=== PATIENT | female | born 1955 | race Caucasian/White ===

== ENCOUNTER 2021-07-20 06:22 | Observation (INO) ==
[~2021-07-20 06:22] MED LIST: *HR* OxyCODONE Immed Rel 5 MG TABLET PO PRN; Acetaminophen IV 1,000 MG/100 ML BAG IVPB ONE; Ondansetron 4 MG/2 ML VIAL IVP PRN; Promethazine 6.25 MG in Water for inj. (sterile) 20 ML IVPB PRN
[2021-07-20] MEDS ORDERED: Scopolamine Patch 1.5 MG PATCH.TD72 TD ONE (06:42)
[2021-07-20] MEDS ORDERED: *HR* HYDROmorphone PF 0.5 MG/0.5 ML SYRINGE IVP PRN (06:43)
[2021-07-20] MEDS ORDERED: *HR* OxyCODONE Immed Rel 5 MG TABLET PO PRN ×2 (06:43→12:05)
[2021-07-20] MEDS ORDERED: Ondansetron 4 MG/2 ML VIAL IVP PRN ×2 (06:43→12:05)
[2021-07-20] MEDS ORDERED: Lidocaine -MPF 2% 5 ML VIAL ONE ×2 (06:48→06:51)
[2021-07-20] MEDS ORDERED: *HR* FentaNYL (PF) 100 MCG/2 ML VIAL ONE ×2 (06:48→08:11)
[2021-07-20] MEDS ORDERED: *HR* Midazolam HCl 2 MG/2 ML VIAL ONE (06:48)
[2021-07-20] MEDS ORDERED: *HR* Propofol 200 MG/20 ML VIAL IVP ONE (06:48)
[2021-07-20] MEDS ORDERED: ROPIVACAINE/PF/NS 0.25% 1 EACH SYRINGE INTRAART ONE (06:49)
[2021-07-20] MEDS ORDERED: Ropivacaine/PF 0.5% 30 ML VIAL ONE (06:49)
[2021-07-20] MEDS ORDERED: CeFAZolin Syr 2,000MG/20 ML 2,000 MG/20 ML SYRINGE IVPB ONE (06:51)
[2021-07-20] MEDS ORDERED: Ondansetron 4 MG/2 ML VIAL ONE (06:51)
[2021-07-20] MEDS: Ringers Solution, Lactated 1,000 ML IVC SCH ×2 (07:14→10:17)
[2021-07-20] MEDS ORDERED: TOTAL JOINT MIXTURE (100ML) INTRAART ONE (07:30)
[2021-07-20] MEDS ORDERED: Povidone-Iodine 45 ML, Sodium Chloride IRRigation 1,000 ML IR ONE (07:30)
[2021-07-20] MEDS ORDERED: Tranexamic Acid 1,000 MG/10 ML VIAL ONE (07:42)
[2021-07-20] MEDS ORDERED: EPHEDrine 50 MG/ML VIAL ONE (07:42)
[2021-07-20] MEDS ORDERED: *HR* Succinylcholine 200 MG/10 ML VIAL IVP ONE (09:23)
[2021-07-20] MEDS: *HR* HYDROmorphone PF 0.5 MG/0.5 ML SYRINGE IVP PRN ×4 (10:05→10:35)
[2021-07-20] MEDS ORDERED: Naloxone 0.4 MG/ML INJ IVP PRN (12:05)
[2021-07-20] MEDS ORDERED: Ringers Solution, Lactated 1,000 ML IVC SCH (12:05)
[2021-07-20] MEDS ORDERED: Sennosides 8.6 MG TABLET PO PRN (12:05)
[2021-07-20] MEDS ORDERED: MOM Conc 10 ML UD.LIQ PO PRN (12:05)
[2021-07-20] MEDS ORDERED: Morphine Sulfate 2 MG/ML SYRINGE IVP PRN (12:05)
[2021-07-20] MEDS: *HR* OxyCODONE Immed Rel 5 MG TABLET PO PRN ×2 (15:45→19:45)
[2021-07-20] MEDS: CeFAZolin 2 GM/120 ML BAG IVPB SCH ×2 (16:17→23:20)
[2021-07-20] MEDS: Ascorbic Acid 500 MG TABLET PO SCH (19:45)
[2021-07-20] MEDS: Gabapentin 300 MG CAPSULE PO SCH (21:26)
[2021-07-20] MEDS: rOPINIRole 1 MG TABLET PO SCH (21:26)
[2021-07-20] MEDS: Insulin DETEMIR 100 UNIT/ML X5UNITS SUBQ SCH (21:27)
[2021-07-20] MEDS: CarBAMazepine XR (12 hr) 100 MG TAB PO SCH (21:27)
[2021-07-21 05:08] LABS: Basophils % 0.2 %; Eosinophils # 0.1 K/mcL (0.0-0.6); Eosinophils % 0.7 %; Hematocrit 35.2 % (35.3-44.9); Hemoglobin 11.5 g/dL (11.5-15.4); Immature Granulocytes % 0.4 % (0-4); Lymphocytes # 2.1 K/mcL (0.6-4.6); Lymphocytes % 24.9 %; Mean Corpuscular HGB Conc 32.7 g/dL (31.6-35.5); Mean Corpuscular Volume 88.7 fL (83.0-100.0); Mean Platelet Volume 11.7 fL (9.4-12.4); Monocytes # 0.8 K/mcL (0.0-1.3); Monocytes % 9.2 %; Neutrophils # 5.4 K/mcL (1.6-8.9); Platelet Count 181 K/mcL (140-400); Red Blood Count 3.97 M/mcL (3.82-4.97); Red Cell Distribution Width 13.2 % (11.5-14.5); Segmented Neutrophils % 64.6 %; White Blood Count 8.4 K/mcL (4.3-11.1)
[2021-07-21 05:12] LABS: BUN/Creatinine Ratio 19 (6-26); Blood Urea Nitrogen 18 mg/dL (8-23); Calcium 8.8 mg/dL (8.6-10.3); Carbon Dioxide 27 mEq/L (23-29); Chloride 106 mEq/L (98-107); Glucose 134 mg/dL (70-105); Osmolality,Calculated 292 (280-300); Potassium 3.7 mEq/L (3.5-5.1); Sodium 139 mEq/L (136-145); eGFR For African Americans > 60 (> 60); eGFR For Non-African Americans 58 (> 60)
[2021-07-21] MEDS: CarBAMazepine XR (12 hr) 100 MG TAB PO SCH ×2 (07:30→20:28)
[2021-07-21] MEDS: rOPINIRole 1 MG TABLET PO SCH ×2 (07:30→20:28)
[2021-07-21] MEDS: *HR* OxyCODONE Immed Rel 5 MG TABLET PO PRN ×3 (07:30→20:27)
[2021-07-21] MEDS: Gabapentin 300 MG CAPSULE PO SCH ×2 (07:30→20:28)
[2021-07-21] MEDS: Ascorbic Acid 500 MG TABLET PO SCH ×2 (07:30→15:33)
[2021-07-21] MEDS: lisinopriL 5 MG TABLET PO SCH (09:42)
[2021-07-21] MEDS: Aspirin Enteric Coated 325 MG Tablet PO SCH ×2 (09:43→20:28)
[2021-07-21] MEDS: Celecoxib 200 MG CAPSULE PO SCH (09:43)
[2021-07-21] MEDS: Multivit/Ca/Min/Fe/FA 1 TAB TABLET PO SCH (09:43)
[2021-07-21] MEDS: clonazePAM 1 MG TABLET PO SCH (09:43)
[2021-07-21] MEDS: Insulin DETEMIR 100 UNIT/ML X5UNITS SUBQ SCH (21:46)
[2021-07-22] MEDS: Acetaminophen 325 MG TABLET PO SCH ×3 (01:25→12:06)
[2021-07-22 04:43] LABS: Basophils % 0.4 %; Eosinophils # 0.2 K/mcL (0.0-0.6); Hematocrit 31.1 % (35.3-44.9); Hemoglobin 10.1 g/dL (11.5-15.4); Immature Granulocytes % 0.3 % (0-4); Lymphocytes # 2.2 K/mcL (0.6-4.6); Lymphocytes % 28.8 %; Mean Corpuscular HGB Conc 32.5 g/dL (31.6-35.5); Mean Corpuscular Hemoglobin 28.7 pg (28.0-33.3); Mean Corpuscular Volume 88.4 fL (83.0-100.0); Mean Platelet Volume 12.1 fL (9.4-12.4); Monocytes # 0.8 K/mcL (0.0-1.3); Monocytes % 9.9 %; Neutrophils # 4.4 K/mcL (1.6-8.9); Platelet Count 167 K/mcL (140-400); Red Blood Count 3.52 M/mcL (3.82-4.97); Red Cell Distribution Width 13.2 % (11.5-14.5); Segmented Neutrophils % 58.6 %; White Blood Count 7.6 K/mcL (4.3-11.1)
[2021-07-22 05:03] LABS: BUN/Creatinine Ratio 17 (6-26); Blood Urea Nitrogen 15 mg/dL (8-23); Calcium 8.5 mg/dL (8.6-10.3); Carbon Dioxide 27 mEq/L (23-29); Chloride 106 mEq/L (98-107); Glucose 194 mg/dL (70-105); Osmolality,Calculated 296 (280-300); Potassium 3.5 mEq/L (3.5-5.1); Sodium 140 mEq/L (136-145); eGFR For African Americans > 60 (> 60); eGFR For Non-African Americans > 60 (> 60)
[2021-07-22] MEDS: Ascorbic Acid 500 MG TABLET PO SCH (08:27)
[2021-07-22] MEDS: Aspirin Enteric Coated 325 MG Tablet PO SCH (08:27)
[2021-07-22] MEDS: lisinopriL 5 MG TABLET PO SCH (08:28)
[2021-07-22] MEDS: CarBAMazepine XR (12 hr) 100 MG TAB PO SCH (08:28)
[2021-07-22] MEDS: clonazePAM 1 MG TABLET PO SCH (08:28)
[2021-07-22] MEDS: Gabapentin 300 MG CAPSULE PO SCH (08:29)
[2021-07-22] MEDS: Multivit/Ca/Min/Fe/FA 1 TAB TABLET PO SCH (08:29)
[2021-07-22] MEDS: rOPINIRole 1 MG TABLET PO SCH (08:29)
[2021-07-22] MEDS ORDERED: Venlafaxine XR (24 HR) 75 MG CAP.ER.24H PO SCH (09:00)
[2021-07-22] MEDS ORDERED: Venlafaxine XR (24 HR) 150 MG CAP.ER.24H PO SCH (09:00)
[2021-07-22] MEDS: *HR* OxyCODONE Immed Rel 5 MG TABLET PO PRN ×2 (09:23→14:12)
[2021-07-22] MEDS: Celecoxib 200 MG CAPSULE PO SCH (09:23)
[2021-07-22 10:50] VITALS: O2SAT 98
[2021-07-22 14:10] VITALS: BP 105/67; PULSE 93; TEMP 98.8
== END 2021-07-22 17:35 | disposition home or self-care (01) ==
LOC: 4WAOSI 06:22 → SDCAOSI 06:22 → 4WAOSI 12:01
PROVIDERS: ADMIT Orthopaedic Surgery; ATTEND Orthopaedic Surgery

== ENCOUNTER 2021-11-23 11:40 | Observation (INO) ==
[2021-11-23] MEDS ORDERED: CeFAZolin Syr 2,000MG/20 ML 2,000 MG/20 ML SYRINGE IVPB ONE (11:59)
[2021-11-23] MEDS ORDERED: Ringers Solution, Lactated 1,000 ML IVC SCH (12:00)
[2021-11-23] MEDS ORDERED: Famotidine 20 MG TABLET PO ONE (12:00)
[2021-11-23] MEDS ORDERED: *HR* FentaNYL (PF) 100 MCG/2 ML VIAL ONE (12:16)
[2021-11-23] MEDS ORDERED: *HR* Midazolam HCl 2 MG/2 ML VIAL ONE (12:16)
[2021-11-23] MEDS ORDERED: Lidocaine -MPF 2% 2 ML VIAL ONE ×2 (12:17→12:47)
[2021-11-23] MEDS ORDERED: *HR* Propofol 200 MG/20 ML VIAL IVP ONE ×2 (12:17→15:46)
[2021-11-23] MEDS ORDERED: *HR* Succinylcholine 200 MG/10 ML VIAL IVP ONE (12:21)
[2021-11-23] MEDS ORDERED: Ondansetron 4 MG/2 ML VIAL ONE (12:21)
[2021-11-23] MEDS ORDERED: *HR* Rocuronium Bromide 50 MG/5 ML VIAL ONE (12:21)
[2021-11-23] MEDS ORDERED: EPHEDrine 50 MG/ML VIAL ONE (12:21)
[2021-11-23] MEDS ORDERED: *HR* FentaNYL (PF) 100 MCG/2 ML VIAL IVP PRN (12:24)
[2021-11-23] MEDS ORDERED: *HR* HYDROmorphone PF 0.5 MG/0.5 ML SYRINGE IVP PRN (12:24)
[2021-11-23] MEDS ORDERED: Ondansetron 4 MG/2 ML VIAL IVP PRN (12:24)
[2021-11-23] MEDS ORDERED: Ropivacaine/PF 0.5% 30 ML VIAL ONE (12:46)
[2021-11-23] MEDS ORDERED: ROPIVACAINE/PF/NS 0.25% 1 EACH SYRINGE INTRAART ONE (12:46)
[2021-11-23] MEDS ORDERED: TOTAL JOINT MIXTURE (100ML) INTRAART ONE (13:40)
[2021-11-23] MEDS ORDERED: Povidone-Iodine 45 ML, Sodium Chloride IRRigation 1,000 ML IR ONE (13:40)
[2021-11-23] MEDS ORDERED: Tranexamic Acid 1,000 MG/10 ML VIAL ONE ×2 (14:11→14:44)
[2021-11-23] MEDS ORDERED: Ketorolac 30 MG/ML VIAL IVP PRN (17:35)
[2021-11-23] MEDS ORDERED: clonazePAM 1 MG TABLET PO PRN (17:45)
[2021-11-23] MEDS ORDERED: Sennosides 8.6 MG TABLET PO PRN (17:45)
[2021-11-23] MEDS ORDERED: *HR* Promethazine 25 MG/ML VIAL IM PRN (17:45)
[2021-11-23] MEDS ORDERED: MOM Conc 10 ML UD.LIQ PO PRN (17:45)
[2021-11-23] MEDS ORDERED: Naloxone 0.4 MG/ML INJ IVP PRN (17:45)
[2021-11-23] MEDS: Ketorolac 30 MG/ML VIAL IVP SCH ×2 (18:14→23:27)
[2021-11-23] MEDS: *HR* OxyCODONE Immed Rel 5 MG TABLET PO PRN (20:09)
[2021-11-23] MEDS: rOPINIRole 1 MG TABLET PO SCH (20:10)
[2021-11-23] MEDS: Gabapentin 300 MG CAPSULE PO SCH (20:10)
[2021-11-23] MEDS: CarBAMazepine XR (12 hr) 100 MG TAB PO SCH (20:11)
[2021-11-23] MEDS: Ascorbic Acid 500 MG TABLET PO SCH (20:11)
[2021-11-23] MEDS: Ondansetron 4 MG/2 ML VIAL IVP PRN (20:13)
[2021-11-23] MEDS: *HR* HYDROmorphone (PF) 1 MG/ML SYRINGE IVP PRN (23:28)
[2021-11-23] MEDS: Insulin DETEMIR 100 UNIT/ML X5UNITS SUBQ SCH (23:36)
[2021-11-23] MEDS: CeFAZolin 2 GM/120 ML BAG IVPB SCH (23:36)
[2021-11-24] MEDS: *HR* OxyCODONE Immed Rel 5 MG TABLET PO PRN ×4 (00:45→22:23)
[2021-11-24] MEDS: Ketorolac 30 MG/ML VIAL IVP SCH ×2 (04:43→11:24)
[2021-11-24] MEDS: *HR* HYDROmorphone (PF) 1 MG/ML SYRINGE IVP PRN (07:19)
[2021-11-24] MEDS: Multivit/Ca/Min/Fe/FA 1 TAB TABLET PO SCH (07:59)
[2021-11-24] MEDS: CarBAMazepine XR (12 hr) 100 MG TAB PO SCH ×2 (08:00→20:13)
[2021-11-24] MEDS: CeFAZolin 2 GM/120 ML BAG IVPB SCH (08:00)
[2021-11-24] MEDS: Ascorbic Acid 500 MG TABLET PO SCH ×2 (08:00→16:48)
[2021-11-24] MEDS: Venlafaxine XR (24 HR) 75 MG CAP.ER.24H PO SCH (08:00)
[2021-11-24] MEDS: rOPINIRole 1 MG TABLET PO SCH ×3 (08:00→20:13)
[2021-11-24] MEDS: lisinopriL 5 MG TABLET PO SCH (08:01)
[2021-11-24 08:56] LABS: Basophils % 0.6 %; Eosinophils # 0.1 K/mcL (0.0-0.6); Eosinophils % 2.9 %; Hematocrit 32.1 % (35.3-44.9); Hemoglobin 10.2 g/dL (11.5-15.4); Immature Granulocytes % 0.2 % (0-4); Lymphocytes # 1.2 K/mcL (0.6-4.6); Mean Corpuscular HGB Conc 31.8 g/dL (31.6-35.5); Mean Corpuscular Hemoglobin 28.6 pg (28.0-33.3); Mean Corpuscular Volume 89.9 fL (83.0-100.0); Mean Platelet Volume 11.5 fL (9.4-12.4); Monocytes # 0.4 K/mcL (0.0-1.3); Monocytes % 7.3 %; Neutrophils # 3.1 K/mcL (1.6-8.9); Platelet Count 146 K/mcL (140-400); Red Blood Count 3.57 M/mcL (3.82-4.97); Red Cell Distribution Width 13.2 % (11.5-14.5); White Blood Count 4.8 K/mcL (4.3-11.1)
[2021-11-24] MEDS ORDERED: Venlafaxine XR (24 HR) 150 MG CAP.ER.24H PO SCH (09:00)
[2021-11-24 09:15] LABS: BUN/Creatinine Ratio 21 (6-26); Blood Urea Nitrogen 22 mg/dL (8-23); Calcium 8.1 mg/dL (8.6-10.3); Carbon Dioxide 30 mEq/L (23-29); Chloride 103 mEq/L (98-107); Glucose 123 mg/dL (70-105); Osmolality,Calculated 291 (280-300); Potassium 4.1 mEq/L (3.5-5.1); Sodium 138 mEq/L (136-145); eGFR For African Americans > 60 (> 60); eGFR For Non-African Americans 51 (> 60)
[2021-11-24] MEDS ORDERED: Bismuth Subsalicylate 120 ML ORAL SUSPENSION PO PRN (16:01)
[2021-11-24] MEDS ORDERED: D5% in Water 1,000 ML IVC PRN (16:07)
[2021-11-24] MEDS ORDERED: Dextrose Gel 15 GM/37.5 ML TUBE PO PRN ×2 (16:07)
[2021-11-24] MEDS ORDERED: *HR* Dextrose 50 % in Water (Syg) 50 ML SYRINGE IVP PRN (16:07)
[2021-11-24] MEDS: Ondansetron 4 MG/2 ML VIAL IVP PRN (16:48)
[2021-11-24] MEDS: Aspirin Enteric Coated 325 MG Tablet PO SCH ×2 (16:50→20:13)
[2021-11-24] MEDS: Gabapentin 300 MG CAPSULE PO SCH (20:14)
[2021-11-24] MEDS: Insulin DETEMIR 100 UNIT/ML X5UNITS SUBQ SCH (20:19)
[2021-11-25] MEDS: *HR* OxyCODONE Immed Rel 5 MG TABLET PO PRN ×3 (05:29→16:04)
[2021-11-25 07:32] LABS: Basophils % 0.3 %; Eosinophils # 0.2 K/mcL (0.0-0.6); Eosinophils % 2.2 %; Hematocrit 33.3 % (35.3-44.9); Hemoglobin 10.8 g/dL (11.5-15.4); Immature Granulocytes % 0.4 % (0-4); Lymphocytes % 13.2 %; Mean Corpuscular HGB Conc 32.4 g/dL (31.6-35.5); Mean Corpuscular Hemoglobin 28.6 pg (28.0-33.3); Mean Corpuscular Volume 88.1 fL (83.0-100.0); Mean Platelet Volume 11.5 fL (9.4-12.4); Monocytes # 0.7 K/mcL (0.0-1.3); Monocytes % 8.8 %; Neutrophils # 5.9 K/mcL (1.6-8.9); Platelet Count 150 K/mcL (140-400); Red Blood Count 3.78 M/mcL (3.82-4.97); Red Cell Distribution Width 13.1 % (11.5-14.5); Segmented Neutrophils % 75.1 %
[2021-11-25 07:51] LABS: BUN/Creatinine Ratio 21 (6-26); Blood Urea Nitrogen 18 mg/dL (8-23); Calcium 8.6 mg/dL (8.6-10.3); Carbon Dioxide 28 mEq/L (23-29); Chloride 103 mEq/L (98-107); Glucose 143 mg/dL (70-105); Osmolality,Calculated 288 (280-300); Potassium 3.8 mEq/L (3.5-5.1); Sodium 137 mEq/L (136-145); eGFR For African Americans > 60 (> 60); eGFR For Non-African Americans > 60 (> 60)
[2021-11-25 07:59] LABS: White Blood Count 7.8 K/mcL (4.3-11.1)
[2021-11-25] MEDS: Ringers Solution, Lactated 1,000 ML IVC SCH ×3 (08:10→09:53)
[2021-11-25] MEDS: rOPINIRole 1 MG TABLET PO SCH ×3 (09:33→22:17)
[2021-11-25] MEDS: CarBAMazepine XR (12 hr) 100 MG TAB PO SCH ×2 (09:52→22:18)
[2021-11-25] MEDS: lisinopriL 5 MG TABLET PO SCH (09:52)
[2021-11-25] MEDS: Aspirin Enteric Coated 325 MG Tablet PO SCH ×2 (09:52→22:17)
[2021-11-25] MEDS: Venlafaxine XR (24 HR) 75 MG CAP.ER.24H PO SCH (09:52)
[2021-11-25] MEDS: Multivit/Ca/Min/Fe/FA 1 TAB TABLET PO SCH (09:53)
[2021-11-25] MEDS: Ascorbic Acid 500 MG TABLET PO SCH ×2 (09:58→16:04)
[2021-11-25] MEDS: Bismuth Subsalicylate 120 ML ORAL SUSPENSION PO SCH ×2 (09:59→18:37)
[2021-11-25] MEDS: Bismuth Subsalicylate 525 MG/30 ML UDC PO SCH ×2 (16:08→22:20)
[2021-11-25 20:21] LABS: Mucus,Urine Few per lpf (None-Few); RBC,Urine 0-3 per hpf (0-3); WBC,Urine 0-3 per hpf (0-3)
[2021-11-25 20:46] LABS: Bilirubin,Urine Negative (Negative); Blood,Urine Negative (Negative); Clarity,Urine Clear (Clear); Color,Urine Light-Yellow (Yellow); Glucose,Urine (UA) 500 mg/dL (Normal); Ketones,Urine Negative (Negative); Leukocyte Esterase,Urine Negative (Negative); Nitrite,Urine Negative (Negative); Protein,Urine Trace mg/dL (Neg-Trace); Specific Gravity,Urine 1.017 (1.010-1.025); Urobilinogen,Urine Normal (Normal)
[2021-11-25] MEDS: Gabapentin 300 MG CAPSULE PO SCH (22:17)
[2021-11-25] MEDS: Insulin DETEMIR 100 UNIT/ML X5UNITS SUBQ SCH (22:20)
[2021-11-26 04:28] LABS: Basophils % 0.3 %; Eosinophils # 0.3 K/mcL (0.0-0.6); Eosinophils % 3.8 %; Hemoglobin 9.9 g/dL (11.5-15.4); Immature Granulocytes % 0.6 % (0-4); Lymphocytes # 1.9 K/mcL (0.6-4.6); Lymphocytes % 27.2 %; Mean Corpuscular HGB Conc 31.9 g/dL (31.6-35.5); Mean Corpuscular Hemoglobin 28.4 pg (28.0-33.3); Mean Corpuscular Volume 89.1 fL (83.0-100.0); Monocytes # 0.7 K/mcL (0.0-1.3); Monocytes % 10.3 %; Neutrophils # 4.1 K/mcL (1.6-8.9); Platelet Count 139 K/mcL (140-400); Red Blood Count 3.48 M/mcL (3.82-4.97); Red Cell Distribution Width 13.3 % (11.5-14.5); Segmented Neutrophils % 57.8 %; White Blood Count 7.1 K/mcL (4.3-11.1)
[2021-11-26 04:43] LABS: BUN/Creatinine Ratio 17 (6-26); Blood Urea Nitrogen 16 mg/dL (8-23); Calcium 8.6 mg/dL (8.6-10.3); Carbon Dioxide 30 mEq/L (23-29); Chloride 104 mEq/L (98-107); Glucose 117 mg/dL (70-105); Osmolality,Calculated 292 (280-300); Potassium 3.9 mEq/L (3.5-5.1); Sodium 140 mEq/L (136-145); eGFR For African Americans > 60 (> 60); eGFR For Non-African Americans > 60 (> 60)
[2021-11-26 07:44] VITALS: TEMP 98.2; O2SAT 94
[2021-11-26 09:07] VITALS: BP 115/74; PULSE 67
[2021-11-26] MEDS: CarBAMazepine XR (12 hr) 100 MG TAB PO SCH (09:08)
[2021-11-26] MEDS: Venlafaxine XR (24 HR) 75 MG CAP.ER.24H PO SCH (09:08)
[2021-11-26] MEDS: Aspirin Enteric Coated 325 MG Tablet PO SCH (09:08)
[2021-11-26] MEDS: rOPINIRole 1 MG TABLET PO SCH (09:09)
[2021-11-26] MEDS: *HR* OxyCODONE Immed Rel 5 MG TABLET PO PRN (09:09)
[2021-11-26] MEDS: Multivit/Ca/Min/Fe/FA 1 TAB TABLET PO SCH (09:09)
[2021-11-26] MEDS: Ascorbic Acid 500 MG TABLET PO SCH (09:09)
[2021-11-26] MEDS: Bismuth Subsalicylate 525 MG/30 ML UDC PO SCH (09:10)
[2021-11-26] MEDS: lisinopriL 5 MG TABLET PO SCH (09:10)
== END 2021-11-26 11:20 | disposition home or self-care (01) ==
LOC: SDCAOSI 11:40 → 4WAOSI 11:40
PROVIDERS: ADMIT Orthopaedic Surgery; ATTEND Orthopaedic Surgery